=== PATIENT | female | born 1990 | race African-American/Black ===

== ENCOUNTER 2017-12-05 12:37 | Emergency (ER) | payer SELFPAY ==
[2017-12-05 12:47] VITALS: BP 148/87
[2017-12-05] MEDS ORDERED: KETOROLAC TROMETHAMINE 60 MG/2 ML SDV IM ONE (13:13)
[2017-12-05] MEDS ORDERED: AMOXICILLIN TR/POT CLAVULANATE 500-125 MG TAB PO ONE (13:13)
--- NOTE | 2017-12-05 13:13 | ER Document Report ---
ED ENT - General Chief Complaint: Ear Pain Stated Complaint: CHEST PAIN Time Seen by Provider: 12/05/17 13:08 Mode of Arrival: Ambulatory Information source: Patient Notes: Chief complaint: 1. Right ear/facial pain 2. Right chest wall pain History of complain:( obtained from----patient) 27 years old female presents today with right facial swelling particularly over the parotid gland region and pain particularly on thinking of food or chewing. For the last few days. No fever chills or other constitutional symptoms Also having right medial part of the scapula pain sometimes radiating to the front on and off. Is also been going on for the last few days, no history of any lifting pushing. No other injuries. No fever chills or other constitutional symptoms. Denies any cough or shortness of breath Onset: As above Duration: As above Severity: Moderate Quality: Sharp Context: As described above Exacerbating factor and relieving factors: As described above REVIEW OF SYSTEMS: CONSTITUTIONAL : Denies fever, chills, or sweats. Denies recent illness. EENT: Denies eye, ear, throat, or mouth pain or symptoms. Denies nasal or sinus congestion or discharge. Denies throat, tongue, or mouth swelling or difficulty swallowing. CARDIOVASCULAR: Denies chest pain. Denies palpitations or racing or irregular heart beat. Denies ankle edema. RESPIRATORY: Denies cough, cold, or chest congestion. Denies shortness of breath, difficulty breathing, or wheezing. GASTROINTESTINAL: Denies distention. Denies nausea, vomiting, or diarrhea. Denies blood in vomitus, stools, or per rectum. Denies black, tarry stools. Denies constipation. GENITOURINARY: Denies difficulty urinating, painful urination, burning, frequency, blood in urine, or discharge. FEMALE GENITOURINARY: Denies vaginal bleeding, heavy or abnormal periods, irregular periods. Denies vaginal discharge or odor. MUSCULOSKELETAL: Denies back or neck pain or stiffness. Denies joint pain or swelling. SKIN: Denies rash, lesions or sores. HEMATOLOGIC : Denies easy bruising or bleeding. LYMPHATIC: Denies swollen, enlarged glands. NEUROLOGICAL: Denies confusion or altered mental status. Denies passing out or loss of consciousness. Denies dizziness or lightheadedness. Denies headache. Denies weakness or paralysis or loss of use of either side. Denies problems with gait or speech. Denies sensory loss, numbness, or tingling. Denies seizures. PSYCHIATRIC: Denies anxiety or stress. Denies depression, suicidal ideation, or homicidal ideation. ALL OTHER SYSTEMS REVIEWED AND NEGATIVE. PHYSICAL EXAMINATION: GENERAL: Well-appearing, well-nourished and in no acute distress. HEAD: Atraumatic, normocephalic. EYES: Pupils equal round and reactive to light, extraocular movements intact, conjunctiva are normal. ENT: Right parotid region shows swelling and tenderness., Buccal mucosa over the upper molar tooth region there is a palpable stone noted at the ampulla of the salivary duct. Nares patent, oropharynx clear without exudates. Moist mucous membranes. NECK: Normal range of motion, supple without lymphadenopathy LUNGS: Breath sounds clear to auscultation bilaterally and equal. No wheezes rales or rhonchi. HEART: Regular rate and rhythm without murmurs Chest-sharp tenderness over the trapezoid muscle on the right medial part of the scapula noted. ABDOMEN: Soft, nontender, nondistended abdomen. No guarding, no rebound. No masses appreciated. Examination of genitals-deferred Musculoskeletal: Normal range of motion, no pitting or edema. No cyanosis. NEUROLOGICAL: Cranial nerves grossly intact. Normal speech, normal gait. Normal sensory, motor exams PSYCH: Normal mood, normal affect. SKIN: Warm, Dry, normal turgor, no rashes or lesions noted. Dictation was performed using [employer] voice recognition software TRAVEL OUTSIDE OF THE [place] IN LAST 30 DAYS: No - HPI Notes: Dictated - Related Data Allergies/Adverse Reactions: No Known Allergies Allergy (Verified 12/05/17 12:41) Past Medical History - Social History Smoking Status: Never Smoker Cigarette use (# per day): No Chew tobacco use (# tins/day): No Frequency of alcohol use: None Drug Abuse: None Lives with: Family Family History: Reviewed & Not Pertinent Review of Systems - Review of Systems Notes: Dictated Physical Exam - Vital signs Vitals: Temp Pulse Resp BP Pulse Ox 99.2 F 118 H 14 148/87 H 100 12/05/17 12:45 12/05/17 12:45 12/05/17 12:45 12/05/17 12:45 12/05/17 12:45 - Notes Notes: Dictated Course - Re-evaluation Re-evalutation: 12/05/17 13:17 Explained in detail what is parotitis, what measures to take as well as muscular sprain. - Vital Signs Vital signs: Temp Pulse Resp BP Pulse Ox 99.2 F 118 H 14 148/87 H 100 12/05/17 12:45 12/05/17 12:45 12/05/17 12:45 12/05/17 12:45 12/05/17 12:45 Discharge - Discharge Clinical Impression: Acute parotitis Strain of right trapezius muscle Qualifiers: Encounter type: initial encounter Qualified Code(s): S46.811A - Strain of other muscles, fascia and tendons at shoulder and upper arm level, right arm, initial encounter Condition: Fair Disposition: HOME, SELF-CARE Instructions: Sprain ([facility]) Additional Instructions: Sprain Your injury is a sprain. A sprain results from stretching or tearing of the ligaments, usually from a twisting injury. The ligaments will require time and protection in order to heal properly. Many sprains are quite disabling and should be taken seriously. The usual initial treatment of sprains is cold packs, elevation, and rest of the injured area. Your physician has assessed the seriousness of your ligament injury, and has outlined a treatment plan. Understand that this treatment may change, depending on how you progress. If a re-examination was recommended, it is important that you follow up as instructed. Call the doctor any time if there is severe pain, numbness, or loss of function in the injured area. Prescriptions: Amoxicillin/Potassium Clav [Augmentin 500-125 Tablet] 1 each PO TID #30 tablet Baclofen [Baclofen 10 mg Tablet] 10 mg PO TID #30 tab Naproxen Sodium [Naprelan] 500 mg PO BID #20 tablet.sa
== END 2017-12-05 13:32 | disposition home or self-care (01) ==
LOC: ER 12:37
DX: K11.21 Acute sialoadenitis (principal); S46.811A Strain of other muscles, fascia and tendons at shoulder and upper arm level, right arm, initial encounter; H92.01 Otalgia, right ear; X58.XXXA Exposure to other specified factors, initial encounter
CPT/HCPCS: 99282; 96372; J1885